=== PATIENT | female | born 1990 | race Caucasian/White ===

== ENCOUNTER 2017-04-28 03:02 | Emergency (ER) | payer OTHER ==
[~2017-04-28] VITALS: Ht 170.2 cm; Wt 133.1 kg
[2017-04-28 03:27] LABS: HEMATOCRIT 39.5 % (36.0-46.0); MCH 30.3 PG (29.0-34.0); MCHC 33.2 G/DL (30.0-36.0); MCV 91.2 FL (83-99); MEAN PLAT.VOLUME 9.6 uM^3 (9.5-12.4); PLATELET COUNT 358 K/uL (156-360); RBC DIS.WIDTH-CV 12.4 % (11.8-14.6); RBC DIS.WIDTH-SD 41.1 % (39-53); RED BLOOD COUNT 4.33 M/uL (3.80-5.20); WHITE BLOOD COUNT 6.8 K/uL (4.1-10.2)
[2017-04-28 03:37] LABS: CHLORIDE 108 mEq/L (99-109); SODIUM 139 mEq/L (136-147)
[2017-04-28 03:40] LABS: GLUCOSE 114 mg/dL (70-99)
[2017-04-28 03:41] LABS: ANION GAP 8 MEQ/L (2-14)
[2017-04-28 03:42] LABS: TOTAL BILIRUBIN 0.6 mg/dL (0.0-1.0)
[2017-04-28 03:43] LABS: ALKALINE PHOSPHATASE 99 IU/L (3-129); GFR ESTIMATE (CALCULATED) > 59 mL/min/
[2017-04-28 03:44] LABS: UREA NITROGEN (BUN) 14 mg/dL (9-23)
[2017-04-28 03:53] LABS: QUANTITATIVE HCG < 4.0 MIU/ML
[2017-04-28 04:43] LABS: LIPASE 18 U/L (1.0-51.0)
[2017-04-28 05:18] LABS: ADD MIUA? NO; BILIRUBIN NEGATIVE; BLOOD NEGATIVE; COLOR YELLOW ((YELLOW)); GLUCOSE (STRIP) NEGATIVE; KETONES NEGATIVE; LEUKOCYTES NEGATIVE; NITRITE NEGATIVE; PROTEIN (STRIP) NEGATIVE; SPECIFIC GRAVITY 1.015 (1.000-1.030); UCUL ADDED? NO; UROBILINOGEN 0.2 MG/DL (0.2-1.0)
[2017-04-28] MEDS ORDERED: PERCOCET 5/31 TABLET PO (05:50)
[2017-04-28] MEDS ORDERED: ZOFRAN ODT4 MG PO (05:50)
[2017-04-28 06:19] VITALS: BP 151/89
== END 2017-04-28 06:20 | disposition home or self-care (01) ==
LOC: EME 03:02
DX: K80.20 Calculus of gallbladder without cholecystitis without obstruction (principal); E78.5 Hyperlipidemia, unspecified; K21.9 Gastro-esophageal reflux disease without esophagitis; Z88.1 Allergy status to other antibiotic agents
CPT/HCPCS: 76705; 80053; 81003; 83690; 84702; 85027; 99281; 99282; J1885; J3010